=== PATIENT | female | born 1980 | race American Indian/Alaskan Native ===

== ENCOUNTER 2018-06-23 03:07 | Emergency (ER) | payer MEDICARE ==
[2018-06-23 03:27] VITALS: BP 117/76
--- NOTE | 2018-06-23 04:58 | Emergency Department Report ---
ED General Adult HPI - General Chief complaint: Medical Clearance Stated complaint: SIDE EFFECTS TO MEDICATIONS Time Seen by Provider: 06/23/18 04:51 Source: patient Mode of arrival: Ambulatory Limitations: No Limitations - History of Present Illness Initial comments: 37-year-old female to emergency Department complaining of possible adverse reaction to Zoloft. States she was prescribed Zofran, Zoloft 3 weeks ago, which she has been taken as prescribed since that time she has been developing some issues with occasional nausea, dry mouth and poly-cachexia. Fourth no no history of diabetes reports no fever, chills, sweats, chest, palpitations, hemoptysis, hematemesis, hematochezia. No hives, no angioedema, no dysphagia, no odynophagia, no chest pain, shortness of breath. Radiation: non-radiation Severity scale (0 -10): 0 Improves with: none Worsens with: none Associated Symptoms: denies other symptoms. denies: headaches, shortness of breath, weakness Treatments Prior to Arrival: none - Related Data Allergies Allergy/AdvReac Type Severity Reaction Status Date / Time fluticasone [From Flonase] Allergy Hives Verified 06/23/18 03:18 lobster Allergy Unknown Uncoded 06/23/18 03:18 steriods Allergy Unknown Uncoded 06/23/18 03:18 ED Review of Systems ROS: Stated complaint: SIDE EFFECTS TO MEDICATIONS Other details as noted in HPI Constitutional: denies: chills, fever Eyes: denies: eye pain, eye discharge, vision change ENT: denies: ear pain, throat pain Respiratory: denies: cough, shortness of breath, wheezing Cardiovascular: denies: chest pain, palpitations Endocrine: no symptoms reported Gastrointestinal: denies: abdominal pain, nausea, diarrhea Genitourinary: denies: urgency, dysuria, discharge Musculoskeletal: denies: back pain, joint swelling, arthralgia Skin: denies: rash, lesions Neurological: denies: headache, weakness, paresthesias Psychiatric: denies: anxiety, depression Hematological/Lymphatic: denies: easy bleeding, easy bruising ED Past Medical Hx - Past Medical History Previous Medical History?: No Hx Psychiatric Treatment: Yes (depression) - Surgical History Past Surgical History?: No - Social History Smoking Status: Never Smoker Substance Use Type: None ED Physical Exam - General Limitations: No Limitations General appearance: alert, in no apparent distress - Head Head exam: Present: atraumatic, normocephalic - Eye Eye exam: Present: normal appearance, PERRL Pupils: Present: normal accommodation - ENT ENT exam: Present: normal exam, normal orophraynx, mucous membranes moist - Neck Neck exam: Present: normal inspection, full ROM. Absent: tenderness, meningismus, lymphadenopathy, thyromegaly - Respiratory Respiratory exam: Present: normal lung sounds bilaterally. Absent: respiratory distress, wheezes, rales, accessory muscle use, decreased breath sounds - Cardiovascular Cardiovascular Exam: Present: regular rate, normal rhythm. Absent: systolic murmur, diastolic murmur, rubs, gallop - GI/Abdominal GI/Abdominal exam: Present: soft, normal bowel sounds - Extremities Exam Extremities exam: Present: normal inspection - Back Exam Back exam: Present: normal inspection - Neurological Exam Neurological exam: Present: alert, oriented X3 - Psychiatric Psychiatric exam: Present: normal affect, normal mood - Skin Skin exam: Present: warm, dry, intact, normal color. Absent: rash ED Course Vital Signs 06/23/18 03:21 Temperature 98.3 F Pulse Rate 78 Respiratory 18 Rate Blood Pressure 117/76 O2 Sat by Pulse 97 Oximetry ED Medical Decision Making - Medical Decision Making 37-year-old female recently just started on Zoloft having issues with probably probably did see and and an and dry mouth. Her blood sugar. Currently today is 90 random. No documented history of diabetes. Blasto importance of follow-up with her psychiatry for definitive management of this medication. If she is likely just having an adverse reaction or intolerability. There is no evidence of any allergic reaction at this present time. Medications for 4 month since her to return to emergency department. She reports she presently lip swelling, shortness of breath, wheezing, chest tightness or chest pain. Critical care attestation.: If time is entered above; I have spent that time in minutes in the direct care of this critically ill patient, excluding procedure time. ED Disposition Clinical Impression: Medication reaction Disposition: DC-01 TO HOME OR SELFCARE Is pt being admited?: No Does the pt Need Aspirin: No Condition: Stable Instructions: Adverse Drug Reaction (ED) Additional Instructions: Please follow with your current psychiatrist for reevaluation and medication adjustment. Referrals: [facility] [Provider Group] - 3-5 Days
== END 2018-06-23 06:00 | disposition home or self-care (01) ==
LOC: ED 03:07
DX: T45.0X5A Adverse effect of antiallergic and antiemetic drugs, initial encounter (principal); E11.9 Type 2 diabetes mellitus without complications; Z88.8 Allergy status to other drugs, medicaments and biological substances; Y92.89 Other specified places as the place of occurrence of the external cause
CPT/HCPCS: 82962; 99284